=== PATIENT | female | born 1985 | race Asian ===

== ENCOUNTER → 2018-07-16 12:53 | Outpatient (CLI) | payer OTHER, SELFPAY ==
--- NOTE | 2018-07-16 12:55 | DI.US.S_ITS ---
PROCEDURE: US PELVIC COMPLETE INDICATIONS: 2 WEEKS POST SAB; POSSIBLE RPOC TECHNIQUE: Real-time scanning was performed of the pelvic organs, with image documentation. Additional endovaginal scanning was necessary due to incomplete visualization of the adnexal and endometrial structures by transabdominal scanning. COMPARISON: None. FINDINGS: Transabdominal scanning: Limited scanning through the kidneys shows no hydronephrosis. No pathologic free abdominal or pelvic fluid. Endovaginal scanning: Uterus: Uterus is retroverted measuring 6.7 x 3.9 x 4.4 cm. The endometrium measures 7.2 mm in combined thickness. There is hypoechoic material within the endometrium demonstrating no vascularity, most likely clot. Ovaries: There is a complex cyst involving the right ovary measures 2.8 x 2.2 x 2.9 cm. The right ovary measures 3.0 x 2.9 x 2.2 cm. Left ovary measures 1.9 x 0.9 x 2.5 cm. IMPRESSION: 1. A 2.8 x 2.2 x 2.9 cm complex cyst in the right ovary, most likely a hemorrhagic cyst. Recommend followup ultrasound in 6-12 weeks. 2. Hypoechoic material in the endometrial cavity, probably related to blood clot. Retained products conception is felt less likely but not entirely excluded. Recommend clinical correlation and followup imaging if clinically indicated. Dictated by: Clinton Cowan M.D. on 07/16/2018 at 16:14 Approved by: Clinton Cowan M.D. on 07/16/2018 at 16:20
== END ==
PROVIDERS: PCP Family Medicine; Visit Provider Family Medicine
DX: O03.4 Incomplete spontaneous abortion without complication (principal)
CPT/HCPCS: 76830; 76856

== ENCOUNTER → 2018-07-20 09:50 | Outpatient (CLI) | payer BC, SELFPAY ==
[2018-07-20 11:14] LABS: HCG Quantitative /Beta subunit 17.88 mIU/mL
== END ==
PROVIDERS: Family Provider Family Medicine; PCP Family Medicine; Visit Provider Family Medicine
DX: O03.9 Complete or unspecified spontaneous abortion without complication (principal)
CPT/HCPCS: 36415; 84702

== ENCOUNTER → 2018-07-30 16:01 | Outpatient (CLI) | payer BC, SELFPAY ==
[2018-07-30 18:35] LABS: HCG Quantitative /Beta subunit 3.79 mIU/mL
== END ==
PROVIDERS: PCP Family Medicine; Visit Provider Family Medicine
DX: O03.9 Complete or unspecified spontaneous abortion without complication (principal)
CPT/HCPCS: 36415; 84702

== ENCOUNTER → 2018-10-16 10:16 | Outpatient (CLI) | payer BC, SELFPAY ==
--- NOTE | 2018-10-16 10:17 | DI.US.S_ITS ---
PROCEDURE: US PELVIC COMPLETE INDICATIONS: FOLLOW UP RIGHT OVARIAN CYST TECHNIQUE: Real-time scanning was performed of the pelvic organs, with image documentation. Additional endovaginal scanning was necessary due to incomplete visualization of the adnexal and endometrial structures by transabdominal scanning. COMPARISON: [facility], , US PELVIC COMPLETE, 07/16/2018, 12:58. FINDINGS: Transabdominal scanning: Limited scanning through the kidneys shows no left-sided hydronephrosis. Prominent right renal pelvis is seen. No pathologic free abdominal or pelvic fluid. Physiologic amount of pelvic free fluid is seen. Endovaginal scanning: Uterus: Uterus is normal in size at 7.4 x 4.0 x 3.4 cm. The endometrium measures 9 mm in combined thickness. No gross endometrial mass or fluid is seen. No discrete uterine fibroid. Ovaries: Right ovary measures 2.9 x 1.6 x 1.5 cm in size. Left ovary measures 2.6 x 1.1 x 1.5 cm in size. Subcentimeter follicles are seen in bilateral ovaries. No gross solid renal lesion. IMPRESSION: Essentially unremarkable ultrasound examination of pelvis. Incidentally noted are mildly prominent right renal pelvis which could represent mild hydronephrosis versus peripelvic cyst. Dictated by: Camacho Jackson M.D. on 10/16/2018 at 13:04 Approved by: Camacho Jackson M.D. on 10/16/2018 at 13:07
== END ==
PROVIDERS: PCP Family Medicine; Visit Provider Family Medicine
DX: N83.201 Unspecified ovarian cyst, right side (principal)
CPT/HCPCS: 76830; 76856

== ENCOUNTER → 2020-05-30 10:35 | Outpatient (CLI) | payer OTHER, SELFPAY ==
--- NOTE | 2020-05-30 10:39 | DI.US.S_ITS ---
PROCEDURE: US OB <= 14 WEEKS FETUS INDICATIONS: SIZE AND DATES. OUTSIDE/PRIOR DATING DATA: Last menstrual period (LMP): 03/22/20. LMP-based estimated date of delivery (SHAMEKA): 12/27/20 . First dating scan (date and location): This study, 05/30/20 . Estimated date of delivery (SHAMEKA) from first dating scan: 01/01/21 . TECHNIQUE: Real-time scanning was performed of the fetus and maternal pelvic organs, with image documentation. Endovaginal scanning was also performed to better visualize the fetus and maternal ovaries. COMPARISON: None. FINDINGS: Embryo: [place]-rump length 2.4 cm, which correlates with a gestational age of 9 weeks 1 day, +/-5 days. heart rate is 171 beats per minute. Measurement variability in dating: +/- 4 weeks by LMP, +/- 7 days by mean sac diameter (use before 6 weeks gestation if crown-rump length not able to be measured), +/- 5 days by crown-rump length (up to 8 weeks 6 days gestation), +/- 7 days by crown-rump length (up to 13 weeks 6 days gestation). Maternal organs: Ovaries normal considering gestational status . Limited images through the kidneys demonstrate no hydronephrosis. IMPRESSION: Single living intrauterine gestation, 9 weeks 1 day gestational age. The delivery date is projected to be centered on 01/01/21, +/-5 days. Recommend anatomic survey at 20 weeks gestation. Dictated by: Kp Barton M.D. on 05/30/2020 at 14:37 Approved by: Kp Barton M.D. on 05/30/2020 at 14:39
== END ==
PROVIDERS: PCP Family Medicine; Referring Provider Family Medicine; Visit Provider Family Medicine
DX: Z34.81 Encounter for supervision of other normal pregnancy, first trimester (principal); Z3A.09 9 weeks gestation of pregnancy
CPT/HCPCS: 76801

== ENCOUNTER → 2020-07-04 11:57 | Outpatient (CLI) | payer OTHER, SELFPAY ==
[2020-07-04 12:30] LABS: Add Manual Diff / Slide Review NO; Basophils Absolute Auto 0 /uL (0-100); Basophils Percent Auto 0.3 % (0-2); Eosinophils Absolute Auto 300 /uL (0-450); Hematocrit 38.9 % (36-46); Lymphocytes Absolute Auto 1900 /uL (1100-4500); Lymphocytes Percent Auto 14.6 % (25-40); Mean Corpuscular HGB Conc 33.5 % (30-36); Mean Corpuscular Hemoglobin 29.1 PG (26-34); Mean Corpuscular Volume 86.9 fL (80-100); Monocytes Absolute Auto 600 /uL (0-900); Monocytes Percent Auto 4.9 % (3-14); Neutrophils Absolute Auto 10200 /uL (1500-7000); Neutrophils Percent Auto 78.2 % (50-75); Platelet Count 212 X10^3/uL (150-400); Red Blood Cell Count 4.47 X10^6/uL (4.0-5.2); Red Cell Distribution Width 12.8 % (11.6-14.8)
[2020-07-04 12:51] LABS: Appearance Urine UA CLOUDY; Bilirubin Urine UA NEGATIVE (NEGATIVE); Color Urine UA YELLOW; Glucose Urine UA NEGATIVE (Negative); Ketones Urine UA NEGATIVE (NEGATIVE); Leukocyte Esterase Urine UA NEGATIVE (NEGATIVE); Nitrite Urine UA NEGATIVE (Negative); Occult Blood Urine UA TRACE-LYSED (Negative); Protein Urine UA NEGATIVE (Negative); Urobilinogen Urine UA 0.2 E.U./dL (0.2)
[2020-07-04 13:21] LABS: Hepatitis B Surface Antigen NEGATIVE s/c (NEGATIVE); Rubella Antibody IgG 35.5 IU/mL (>15)
[2020-07-04 13:37] LABS: HIV 1 & 2 Ab/Ag 4th Gen Combo NEGATIVE (NEGATIVE); Hep C Virus Ab w/Reflex Quant NEGATIVE s/c (NEGATIVE)
[2020-07-05 06:55] LABS: RPR Screen Non Reactive (Non Reactive)
[2020-07-05 07:40] LABS: Varicella IgG Antibody 346 index (Immune >165)
== END ==
PROVIDERS: PCP Family Medicine; Referring Provider Family Medicine; Visit Provider Family Medicine
DX: O09.529 Supervision of elderly multigravida, unspecified trimester (principal); Z3A.14 14 weeks gestation of pregnancy
CPT/HCPCS: 36415; 80055; 81003; 81420; 86787; 86803; 86850; 86900; 86901; 87086; 87389

== ENCOUNTER → 2020-08-16 10:16 | Outpatient (CLI) | payer OTHER, SELFPAY ==
--- NOTE | 2020-08-16 10:17 | DI.US.S_ITS ---
PROCEDURE: US OB >= 14 WEEKS FETUS INDICATIONS: ANATOMY OUTSIDE/PRIOR DATING DATA: Last menstrual period (LMP): 03/22/2020. LMP-based estimated date of delivery (SHAMEKA): 12/27/2020 . First dating scan (date and location): 05/30/2020 Estimated date of delivery (SHAMEKA) from first dating scan: 01/01/2021 . TECHNIQUE: Real-time scanning was performed of the fetus, with image documentation and biometric measurements. Endovaginal scanning: No COMPARISON: [facility], OB <= 14 WEEKS FETUS, 05/30/2020, 10:58. FINDINGS: General: A single living intrauterine gestation is present. Presentation: Variable. Placenta: Placental position is posterior , without previa. Amniotic fluid index: 13.5 cm, normal range is 5-24 cm. heart rate: 150 beats per minute. Maternal cervical canal: 3.2 cm long. Normal lower limit is 2.5 cm. biometrics: Biparietal diameter: 20 weeks 3 days Head circumference: 20 weeks Abdominal circumference: 20 weeks Femur length: 20 weeks 2 days Estimated gestational age from initial scan: 20 weeks 2 days Composite gestational age from present scan: 20 weeks 3 days Estimated weight and percentile: 363 g; 60 second percentile Measurement variability for biometric dating: +/- 7 days from 14 weeks to 15 weeks 6 days gestation, +/- 10 days from 16 weeks to 21 weeks 6 days gestation, +/- 2 weeks from 22 weeks to 27 weeks 6 days gestation, +/- 3 weeks for 28 weeks gestation or later. weight reference: 4500 g or EFW >90/95% is considered macrosomia or large for gestational age. EFW <10% is small for gestational age. EFW 5% or less is considered intra-uterine growth restriction. Anatomic survey: Neuro: Ventricles are non-dilated at less than 10 mm. Cisterna magna is normal at 3-11 mm. Cerebellum is normal in size and morphology. Nuchal skin fold: Normal at less than 6 mm between 14-21 weeks gestational age. Face: Nose and lips, facial profile are normal. Spine: No evidence for spina bifida. Heart: 4-chambered heart is present, with normal ventricular outflow tracts. Diaphragm: Diaphragm is intact. Stomach: Left-sided stomach is present. Kidneys: No hydronephrosis. Normal is less than 5 mm in 2nd trimester, less than 7 mm in 3rd trimester. Cord: 3-vessel cord has orthotopic insertion. Marginal placental cord insertion roughly 1.9 cm from the superior edge of the placenta. Bladder: Normal in size. Extremities: All 4 extremities identified. IMPRESSION: 1. Single living IUP redemonstrated and interval growth is normal. 2. Marginal placental cord insertion site; otherwise normal anatomy. Dictated by: Franko SONG Interpreted: Roman Ga MD on 08/16/2020 at 12:02 Approved by: Roman Ga M.D. on 08/16/2020 at 14:31
== END ==
PROVIDERS: PCP Family Medicine; Referring Provider Family Medicine; Visit Provider Family Medicine
DX: Z36.89 Encounter for other specified antenatal screening (principal); Z3A.20 20 weeks gestation of pregnancy
CPT/HCPCS: 76811

== ENCOUNTER → 2020-10-30 12:39 | Outpatient (CLI) | payer OTHER, SELFPAY ==
--- NOTE | 2020-10-30 12:41 | DI.US.S_ITS ---
PROCEDURE: US OB LIMITED INDICATIONS: LARGE FOR GESTATIONAL AGE OUTSIDE/PRIOR DATING DATA: Last menstrual period (LMP): 03/22/2020. LMP-based estimated date of delivery (SHAMEKA): 12/27/2020 . First dating scan (date and location): 05/30/2020, [facility]. Estimated date of delivery (SHAMEKA) from first dating scan: 01/01/2021. TECHNIQUE: Real-time scanning was performed of the fetus, with image documentation and biometric measurements. COMPARISON: None. FINDINGS: General: A single living intrauterine gestation is present. Presentation: Transverse with head to maternal left. Placenta: Placental position is posterior , without previa. Amniotic fluid index: 19.6 cm, normal range is 5-24 cm. heart rate: 158 beats per minute. Maternal cervical canal: 5.4 cm long. Normal lower limit is 2.5 cm. biometrics: Biparietal diameter: 8.0 cm, 32 weeks 1 day Head circumference: 28.9 cm, 31 weeks 5 days Abdominal circumference: 26.5 cm, 30 weeks 4 days Femur length: 5.9 cm, 30 weeks 5 days Estimated gestational age from initial scan: not applicable. Composite gestational age from present scan: 31 weeks 2 days Estimated weight and percentile: 1664 g, 35th percentile Measurement variability for biometric dating: +/- 7 days from 14 weeks to 15 weeks 6 days gestation, +/- 10 days from 16 weeks to 21 weeks 6 days gestation, +/- 2 weeks from 22 weeks to 27 weeks 6 days gestation, +/- 3 weeks for 28 weeks gestation or later. weight reference: 4500 g or EFW >90/95% is considered macrosomia or large for gestational age. EFW <10% is small for gestational age. EFW 5% or less is considered intra-uterine growth restriction. Other: Not applicable. IMPRESSION: 1. Living 3rd trimester intrauterine with no evidence of complications. 2. Ultrasound age is 2 days greater than clinical age based on initial ultrasound. Dictated by: South Velasco M.D. on 10/30/2020 at 14:45 Approved by: South Velasco M.D. on 10/30/2020 at 14:50
== END ==
PROVIDERS: PCP Family Medicine; Referring Provider Family Medicine; Visit Provider Family Medicine
DX: Z36.88 Encounter for antenatal screening for fetal macrosomia (principal); Z3A.31 31 weeks gestation of pregnancy
CPT/HCPCS: 76815

== ENCOUNTER → 2020-12-05 11:20 | Outpatient (CLI) | payer OTHER, SELFPAY ==
[2020-12-06 16:15] LABS: Strep Grp B PCR NEG for Grp B Strep
== END ==
PROVIDERS: PCP Family Medicine; Referring Provider Family Medicine; Visit Provider Family Medicine
DX: Z3A.36 36 weeks gestation of pregnancy (principal)
CPT/HCPCS: 87653

== ENCOUNTER 2020-12-29 07:37 | Inpatient (IN) | payer OTHER, SELFPAY ==
--- NOTE | 2020-12-29 07:51 | P.HPOB_ITS ---
OB HPI Date/Time Date of admission: 12/29/20 Date Patient Seen: 12/29/20 Time Patient Seen: 08:00 History of Present Condition Chief complaint: EVAL OF LABOR : 3 Para: 1 Estimated Date of Delivery: 12/29/20 Estimated Gestational Age (weeks): 40 w Narrative: Devan Muñoz is a 35 year old at 40 weeks gestation here for induction due to advanced maternal age and maternal discomfort. has been uncomplicated. Indications Indication for induction OB: maternal discomfort History of Present care: good care, initiated at week # (10), number of visits (12) and pounds weight gain (37) Dating criteria: LMP confirmed by 1st trimester US Ultrasounds: normal 1st trimester US and normal mid trimester US Obstetrical complications: none Medical complications: none Preadmission Labs Blood type: B (+) positive -: Antibody screen: negative, GBS status: negative, HBsAG: negative, HIV: negative and RPR/VDLR: negative -: Chlamydia screen: not detected and Gonorrhea screen: not detected -: Rubella: immune and Varicella: immune HCT: 39.2 HCAB: negative PAP: Normal Cell-free DNA: Normal male 1 hr GTT: 125 3 hr GTT: 1 hr Prior (ies) History: 05/06/17 40.2 wks, 15 hr labor, epidural, 6 lb 11 oz female, [place], [place], [place], breast fed 2+ years 07/02/18 SAB 7-8 wks, [place], [place] Evaluation Evaluation Baseline heart rate: 130 Variability: Moderate (11-25) monitor accelerations: Present Monitor Decelerations: Absent Category of Tracing: Reactive Cervical dilation (cm): 3 Cervical effacement (%): 75 station: -2 [facility] Medical History AMA (advanced maternal age) multigravida 35+ Hemorrhage, immediate (~05/06/17) Hemorrhoids (~04/2017) Miscarriage (~07/02/18) Ovarian cyst PCOS (polycystic ovarian syndrome) Spontaneous vaginal delivery (~05/06/17) Surgical History H/O breast augmentation (~2014) Family History Mother Hyperlipidemia Father No problems noted. Grandmother No problems noted. Grandfather No problems noted. 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) current occupational exposures/hazards: Yes francisco/congregation: [employer] special francisco needs: No Smoking Status: Never smoker second hand exposure: No alcohol intake: former (pre- : rare) substance use type: does not use Meds Home Medications and Allergies Home Medications Medication Instructions Recorded Confirmed Type prenat.vits,latrice,[id number] 1 tab PO DAILY 05/30/20 12/29/20 History Allergies Allergy/AdvReac Type Severity Reaction Status Date / Time No Known Drug Allergies Allergy Verified 06/06/20 12:03 Review of Systems Review of Systems ROS: Yes All systems reviewed with the patient and are negative except as otherwise documented Exam Vital Signs (past 8 hours): Temperature 36.5? blood pressure 107/69 heart rate 105 Const General: healthy appearing and comfortable HENMT Head: normal to inspection Ears: hearing grossly normal bilaterally Nose: external nose normal Face and sinus: normal facial exam Mouth: oral mucosae normal Eyes General: appearance normal, both eyes and all related structures Neck Neck: normal visual inspection Resp Effort & Inspection: normal respiratory effort Auscultation: clear to auscultation bilaterally Cardio Rate: regular rate Rhythm: regular rhythm Heart Sounds: no murmurs GI Other: Gravid External Female Exam: normal external appearance Manual OB Exam: dilated 3, effaced 75% and station -2 Presentation: vertex Estimated Weight (lbs): 7 Back/Spine/Pelvis Back: normal to inspection Skin General: no rashes or lesions noted Extrem General: normal to inspection and no pedal edema Objective Labs Result Diagrams: 12/29/20 07:55 Assessment and Plan Assessment and Plan Assessment and Plan narrative: 35-year-old at 40 weeks gestation here for induction for AMA and maternal discomfort. Victoria score is 9. Plan Pitocin per protocol Epidural when desired Anticipate
[2020-12-29] MEDS: LACTATED RINGERS 1,000 ML 100 ML IV ×4 (08:10→17:04)
[2020-12-29] MEDS: OXYTOCIN PREMIX 30 UNIT/500 ML PLAST..BAG IV (08:11)
[2020-12-29 08:15] LABS: Add Manual Diff / Slide Review NO; Basophils Absolute Auto 0 /uL (0-100); Basophils Percent Auto 0.4 % (0-2); Eosinophils Absolute Auto 300 /uL (0-450); Eosinophils Percent Auto 2.8 % (2-4); Hematocrit 39.2 % (36-46); Hemoglobin 13.3 g/dL (12.0-16.0); Lymphocytes Absolute Auto 1900 /uL (1100-4500); Lymphocytes Percent Auto 15.6 % (25-40); Mean Corpuscular HGB Conc 33.9 % (30-36); Mean Corpuscular Hemoglobin 30.9 PG (26-34); Mean Corpuscular Volume 91.3 fL (80-100); Monocytes Absolute Auto 800 /uL (0-900); Monocytes Percent Auto 6.4 % (3-14); Neutrophils Absolute Auto 9200 /uL (1500-7000); Neutrophils Percent Auto 74.8 % (50-75); Platelet Count 130 X10^3/uL (150-400); Red Blood Cell Count 4.29 X10^6/uL (4.0-5.2); Red Cell Distribution Width 13.7 % (11.6-14.8); White Blood Cell Count 12.3 X10^3/uL (4.5-11.0)
[2020-12-29 08:29] VITALS: BP 107/69
[2020-12-29 09:15] LABS: COVID19 - ADMIT (NP swab/PCR) Negative (Negative)
--- NOTE | 2020-12-29 12:38 | PM.OBPNLAB ---
Date/Time Date Patient Seen: 12/29/20 Time Patient Seen: 12:30 Pain Control Pain control: tolerating well Pelvic Exam Dilation (cm): 4 Effacement (%): 75 station: -2 Amniotic membrane status: Ruptured (AROM clear fluid) Contractions Monitor mode: External Pitocin rate (mU/min): 12 Contraction frequency (min): 3 Status status: Category l Heart Rate Baseline: 130 Monitor Accelerations: Present Monitor Decelerations: Absent Monitor Variability: Moderate Assessment and Plan Assessment: induction ongoing Plan: continuous present management Comments: AROM with clear fluid. Continue pitocin. Epidural upon request.
[2020-12-29] MEDS: FENT 2MCG/ML BUPIV 0.125% EPI 200 MCG/100 ML PLAST..BAG 8 MCG EPIDURAL (13:05)
--- NOTE | 2020-12-29 14:27 | PM.AN.REGBLK ---
Regional Block Pre-procedure Procedure: Continuous Lumbar Epidural for L&D Attending OB provider: Idalmis Wong PMH/ROS narrative: No significant past medical history. Hx: No personal or family history of anesthesia problems. Exam narrative: MP2, RRR, CTAB ASA Class: II Labs: Hct 39.2 % (36-46) 12/29/20 07:55 Plt Count 130 X10^3/uL (150-400) L 12/29/20 07:55 Medications: Current Medications Generic Name Dose Route Start Last Admin Trade Name Freq PRN Reason Stop Dose Admin Calcium Carbonate 1,000 mg 12/29/20 08:03 Calcium Carbonate 500 Mg Tab PO Q2HR PRN Dyspepsia Carboprost Tromethamine 250 mcg 12/29/20 08:03 Carboprost 250 Mcg/Ml Ampul IM Q90M PRN Bleeding Fentanyl 50 mcg 12/29/20 08:03 Fentanyl 100 Mcg/2 Ml Inj IV Q1H PRN Pain, Moderate (4-6) Oxytocin/Lactated Ringer's 30 unit in 500 mls @ 3 mls/hr 12/29/20 08:15 Oxytocin Premix IV TITRATE MINA Protocol 3 MILLIUNIT/MIN Lactated Ringer's 1,000 mls @ 100 mls/hr 12/29/20 08:15 12/29/20 13:17 Lactated Ringers IV 100 mls/hr CONT MINA Administration Oxytocin/Lactated Ringer's 30 unit in 500 mls @ 200 mls/hr 12/29/20 08:03 Oxytocin Premix IV CONT PRN Bleeding Protocol Tranexamic Acid 1,000 mg/ 100 mls @ 200 mls/hr 12/29/20 08:03 Sodium Chloride IV NOW PRN Bleeding Methylergonovine Maleate 0.2 mg 12/29/20 08:03 Methylergonovine 0.2 Mg/Ml Vial IM NOW PRN Bleeding Methylergonovine Maleate 0.2 mg 12/29/20 08:03 Methylergonovine 0.2 Mg Tablet PO Q6HR PRN Heavy Bleeding Misoprostol 1,000 mcg 12/29/20 08:03 Misoprostol 200 Mcg Tablet PA NOW PRN Bleeding Misoprostol 400 mcg 12/29/20 08:03 Misoprostol 200 Mcg Tablet SL NOW PRN Bleeding Misoprostol 800 mcg 12/29/20 08:03 Misoprostol 200 Mcg Tablet PA NOW PRN Bleeding Ondansetron HCl 4 mg 12/29/20 08:03 Ondansetron 4 Mg/2 Ml Inj IV Q4HR PRN Nausea And Vomiting Oxytocin 10 unit 12/29/20 08:03 Oxytocin 10 Unit/Ml Vial IM NOW PRN Bleeding Allergies: Allergies Allergy/AdvReac Type Severity Reaction Status Date / Time No Known Drug Allergies Allergy Verified 06/06/20 12:03 Procedure Insertion date: 12/29/20 Insertion time: 12:24 Prep/Local: betadine x3 (chloroprep) and 1% lidocaine Interspace: L2-3 Patient position: sitting Needle: 18 gauge Leonidastead Loss of resistance with: saline WONG at (cm): 4 Catheter placed at SKIN (cm): 9 Catheter in SPACE (cm): 5 Insertion: Yes CSF, No Blood, No Paresthesia with insertion, No Paresthesia with injection and No Test dose reaction Initial Medications TEST DOSE: 1.5% lidocaine with epinephrine 1:200k (mL): 5 BOLUS DOSE (mL): 2 BOLUS DOSE med: other (10mcg fentanyl intrathecally, 90mcg fentanyl via epidural catheter) Infusion INFUSION: 0.0625% bupivacaine and with fentanyl 2 mcg/mL Initial rate (mL/hr): 8 Subsequent interventions: 1540 - patient says she is a little too numb, turned rate down from 8 mL/hr to 7 mL/hr 1650 - pushing, comfortable, would like to feel a little more - turned down to 6 mL/hr Post-procedure Anesthesia time START: 12:01 Anesthesia time END: 20:15 Post-procedure Anesthesia Assessment: Yes CV function: HR/BP stable, Yes Resp function: RR/sat/airway adequate, Yes Post-op hydration adequate, Yes Pain control adequate, Yes Nausea & vomiting absent, Yes Temperature > 36 C, Yes Mental status appropriate and No Anesthesia complications
--- NOTE | 2020-12-29 17:24 | PM.OBPNLAB ---
Date/Time Date Patient Seen: 12/29/20 Time Patient Seen: 17:25 Pain Control Pain control: tolerating well and epidural Comments: Comfortable with epidural Pelvic Exam Dilation (cm): 10 Effacement (%): 100 station: 0 Amniotic membrane status: Ruptured (AROM clear fluid) Contractions Monitor mode: External Contraction frequency (min): 2 Status status: Category ll Heart Rate Baseline: 130 Monitor Accelerations: Present Monitor Decelerations: Late and Variable Monitor Variability: Moderate Assessment and Plan Assessment: active labor Plan: continuous present management Comments: 35 year old at 40 weeks for induction for AMA and maternal discomfort. Patient was complete at 16:09 but not feeling pressure. Shortly thereafter she was feeling pressure so pushing iniated at 16:31. EFM cat II due to variable and late decelerations with pushing but good variability and recovery in between pushes. Patient was given a fluid bolus and oxygen with improvement in EFM. She pushed for about 45 min then stated she no longer had the urge to push. Will have her labor down and wait for the urge to return. Suspect is either OP or OT so will use the peanut ball to help descent and turning.
[2020-12-29] MEDS: miSOPROStoL 200 MCG TABLET 1000 MCG PR (20:23)
--- NOTE | 2020-12-29 20:47 | P.PCNOB_ITS ---
Labor & Delivery Delivery date: 12/29/20 Induction method: per pitocin protocol Delivery augmentation: rupture of membranes Delivery monitor: external FHT Route of delivery: vacuum extraction Indication for instrumentation: maternal exhaustion L&D Laceration Description: Vaginal - 1st Degree Estimated blood loss (mL): 450 Anesthesia Type: Epidural Narrative: Patient is a 35-year-old at 40 weeks who gave on 12/29/20 at 8:15 p.m.. SHAMEKA: 12/29/20 Hospital problems: 40 weeks of Vacuum assisted vaginal delivery STAGE I: Labor Patient received Pitocin per protocol. Artificial rupture membranes occurred at 12:45 p.m. with clear fluid. Actively labor began shortly thereafter and she went on to receive an epidural with excellent pain control. She progressed to complete at 2:09 p.m.. heart tones were category 1 and 2 throughout stage I due to occasional variable and late decelerations. Variability remained excellent throughout. STAGE II: Delivery Patient was complete at 4:09 p.m. however did not have the urge to push. She labor down for about 20 minutes then stated she felt rectal pressure. Pushing initiated at 1631. After approximately 45 minutes with little descent, patient stated she no longer had the urge to push. She labored down for about an hour when rectal pressure returned. She pushed for over an hour with slow descent. The decision was made to consult Dr. Whatley with obstetrics for possible vacuum assisted delivery due to maternal exhaustion. Dr. Whatley arrived and determined that a vacuum was appropriate. Patient's bladder had been emptied approximately 1 hour prior. He applied the Omni cup vacuum and pulled over 1 contraction to . The vacuum was then removed. Patient rested until the next contraction then was able to push and deliver the infant over an intact perineum. Infant was vertex and ADRIANNA. He was immediately placed on mother's a bdomen. Cord was clamped and cut after 1 minutes delay. Apgars were 9 and 9. No resuscitation of the required. STAGE III: Placenta/Cord Placenta delivered at 8:20 p.m. after active management and appeared intact with a three-vessel cord. Pitocin bolus started immediately after delivery of placenta. A 1 cm first-degree vaginal laceration was repaired with 4-0 chromic due to bleeding. Hemostasis achieved. Complications: There were small gushes of blood with persistent tricking after delivery of placenta so Cytotec 1000 mcg given per rectum in addition to pitocin bolus. Uterus was firm at umbilicus after interventions. Patient has a history of hemorrhage. EBL: 450 mL. Needle and sponge counts were correct. The vagina was inspected and no items were left in situ. Patient was doing well with Cody, her and at bedside. Baby 1: Infant gender: Male Presentation: vertex Position: Right Occiput Anterior Placenta delivery description: Spontaneous Cord Vessel Description: 3 Vessels score (1 min): 9 score (5 min): 9 Plan for aftercare: Routine care
[2020-12-30] MEDS: DERMOPLAST SPRAY 20% 60 ML 1 SPRAY TOP (02:42)
[2020-12-30] MEDS: IBUPROFEN 600 MG TABLET PO ×2 (02:43→14:53)
[2020-12-30] MEDS: ACETAMINOPHEN 325 MG TABLET 650 MG PO ×2 (02:43→14:53)
--- NOTE | 2020-12-30 06:09 | PM.CN ---
History of Present Illness Consult details Date Patient Seen: 12/29/20 Time Patient Seen: 20:00 Chief complaint: EVAL OF LABOR Reason for consult: Secondary arrest of labor due to maternal exhaustion Requesting provider: Idalmis Wong Narrative: Mrs. Muñoz is a 35 yo in induced labor at term who has progressed into the second stage which has been ongoing for approximately 4 hours. She is laboring with an epidural in place and is pushed the down to a +2 station. Estimated weight is no greater than 7-1/2 lb and pelvis is clinically adequate. heart rate tracing shows moderate variability, normal baseline and early decelerations/variables with maternal pushing and is a category 2 tracing. The infant is found to be +2 station, KORINA, and the vertex moves downward with maternal pushing effort. After discussing the circumstances with the patient and her as well as Dr. Wong, the decision was made to proceed with vacuum assisted delivery due to maternal exhaustion. A Kiwi OmniCup was applied in the usual fashion, suction to approximately 600 mm of mercury applied and with a single pole, the vertex was brought down to the perineum and the vacuum extractor released with the infant . At that point, completion of the vaginal delivery was turned over to Dr. Wong whose delivery note details the remainder of the procedure and delivery. Meds Home Medications and Allergies Home Medications Medication Instructions Recorded Confirmed Type prenat.vits,latrice,[id number] 1 tab PO DAILY 05/30/20 12/29/20 History Allergies Allergy/AdvReac Type Severity Reaction Status Date / Time No Known Drug Allergies Allergy Verified 06/06/20 12:03 Objective Labs Result Diagrams: 12/29/20 07:55 Labs: Laboratory Results - last 24 hr 12/29/20 12/29/20 12/29/20 07:55 07:55 07:55 WBC 12.3 H RBC 4.29 Hgb 13.3 Hct 39.2 MCV 91.3 MCH 30.9 MCHC 33.9 RDW 13.7 Plt Count 130 L Neut % (Auto) 74.8 Lymph % (Auto) 15.6 L [place] % (Auto) 6.4 Eos % (Auto) 2.8 Baso % (Auto) 0.4 Neut # (Auto) 9200 H Lymph # (Auto) 1900 [place] # (Auto) 800 Eos # (Auto) 300 Baso # (Auto) 0 SARS-CoV-2 (PCR) Negative Blood Type B Positive Antibody Screen Negative
[2020-12-30 06:38] LABS: Hematocrit 33.2 % (36-46); Hemoglobin 11.3 g/dL (12.0-16.0)
--- NOTE | 2020-12-30 09:38 | P.DS_ITS ---
Discharge Providers Provider Date of admission: 12/29/20 07:37 Discharge Date: 12/30/20 Primary care physician: Idalmis Wong DO Consults: 12/30/20 20:48 Consult to [employer] Routine Comment: Discharge provider: Idalmis Wong DO Summary Hospital Course Date Patient Seen: 12/30/20 Time Patient Seen: 08:45 Diagnoses: Vacuum assisted vaginal delivery 40 weeks of Hospital Course: Patient is a 35-year-old G3 now P2 after vacuum assisted vaginal delivery for maternal exhaustion. Delivery occurred at 40 weeks gestation on 12/29/20. Patient was brought in for induction for maternal discomfort and advanced maternal age. She received Pitocin per protocol then went on to receive an epidural. She was complete and pushing for several hours with slow descent so Dr. Whatley was consulted for vacuum assisted vaginal delivery. Dr. Whatley successfully applied the vacuum and patient went on to deliver a vigorous male . Immediately there was more bleeding than expected so she was given Pitocin and Cytotec with excellent control of bleeding. EBL 450 mL. course was uncomplicated. She was ambulating, voiding, eating and passing flatus. Vaginal bleeding was moderate and pain controlled with ibuprofen. Breast-feeding was going well without concerns in in the . Advised patient to call for fevers, severe pain or bleeding through more than a pad an hour. She will follow-up in clinic in 6 weeks. Peripartum Data Delivery Method: Assisted Delivery (Vacuum assisted for maternal exhaustion) Laceration Description: Vaginal - 2nd Degree complications: none 1: Gender: Male Disposition of : home Discharge Diagnosis (1) Vacuum-assisted vaginal delivery: Status: Acute (2) 40 weeks gestation of : Status: Acute Status at Discharge Cognitive/behavioral status at discharge: at baseline, oriented Functional status at discharge: independent ambulation Overall status at discharge: patient is progressing back to baseline Time Spent with Patient Time attestation: Total time spent providing and/or coordinating discharge services: Time spent: Less than 30 minutes Objective Labs Result Diagrams: 12/30/20 06:28 Labs: Laboratory Results - last 24 hr 12/30/20 06:28 Hgb 11.3 L Hct 33.2 L Exam Vital Signs (past 8 hours): Temperature 36.7? blood pressure 108/49 heart rate 86 Narrative Exam Narrative: General: Awake and alert, no acute distress. HEENT: NCAT, EOMI, moist oral mucosa CV: Regular rate and rhythm, no murmurs, rubs or gallops Lungs: CTAB, no wheezes, rales, or rhonchi Abdomen: Soft, nontender; bowel tones active; uterus firm 1 cm below umbilicus Extremities: Warm, no edema Discharge Plan Discharge Plan Patient Disposition: Home Discharge orders & Medications Prescriptions: New docusate sodium [DOK] 100 mg Capsule 100 mg PO DAILY Qty: 30 RF: 0 ibuprofen 600 mg Tablet 600 mg PO Q6HR PRN (Reason: Pain, Mild (1-3)) Qty: 30 RF: 0 Continued prenat.vits,latrice,[id number] Tablet 1 tab PO DAILY RF: 0 Follow up/Referrals: Idalmis Wong DO [Primary Care Provider] - 6 Weeks (Patient will be scheduled for her 6 week visit when she comes in with her for his first visit.) Visit Report/Discharge Packet Visit Report Forms: Patient Portal/API, Stroke Signs & Symptoms Discharge Data Primary Care Provider: Idalmis Wong
[2020-12-30] MEDS: PRENATAL VIT,CALC/IRON/FOLIC 1 TABLET 1 TAB PO (10:00)
[2020-12-30] MEDS: DOCUSATE 100 MG CAPSULE PO (10:00)
[2020-12-30 10:43] VITALS: BP 108/49; PULSE 86; RESP 18; TEMP 36.7
== END 2020-12-30 15:30 | disposition home or self-care (01) | DRG 807 ==
PROVIDERS: Admitting Provider Family Medicine; PCP Family Medicine; Referring Provider Family Medicine; Visit Provider Family Medicine
DX: O48.0 Post-term pregnancy (principal); Z37.0 Single live birth; Z3A.40 40 weeks gestation of pregnancy; Z20.822 Contact with and (suspected) exposure to COVID-19; O70.0 First degree perineal laceration during delivery
CPT/HCPCS: 01967; 36415; 59050; 59400; 85014; 85018; 85025; 86850; 86900; 86901; 87635; C9803; G0379; J2590; S0191

== ENCOUNTER → 2021-08-14 09:52 | Outpatient (CLI) | payer OTHER, MEDICAID, SELFPAY ==
[2021-08-14 10:24] LABS: COVID19 -Nasal RAPID Negative (Negative)
== END ==
PROVIDERS: PCP Family Medicine; Referring Provider Family Medicine; Visit Provider Family Medicine
DX: R05.9 Cough, unspecified (principal); Z20.822 Contact with and (suspected) exposure to COVID-19
CPT/HCPCS: 81025; 87635

== ENCOUNTER → 2024-10-18 14:14 | Outpatient (CLI) | payer OTHER, SELFPAY ==
--- NOTE | 2024-10-18 14:16 | DI.US.S_ITS ---
PROCEDURE: US THYROID INDICATIONS: Enlarged thyroid TECHNIQUE: Real-time scanning was performed of the thyroid gland, with image documentation. COMPARISON: None. FINDINGS: Thyroid: Right lobe measures 4.7 x 1.7 x 1.4 cm. Left lobe measures 4.4 x 1.6 x 1.6 cm. Isthmus is 0.3 cm thick. Echotexture is diffusely heterogeneous and mildly hyperemic. IMPRESSION: Diffusely heterogeneous and mildly hyperemic thyroid which can be associated with thyroiditis in the appropriate clinical setting. No discrete nodules. ACR TI-RADS definitions and recommendations: TI-RADS 1 (benign): 0 points. FNA not needed. TI-RADS 2 (not suspicious): 2 points. FNA not needed. TI-RADS 3: 3 points. * FNA if 2.5 cm or larger, follow up if 1.5 cm or larger (at 1, 3, and 5 years). TI-RADS 4: 4-6 points. * FNA if 1.5 cm or larger, follow up if 1 cm or larger (at 1, 2, 3, and 5 years). TI-RADS 5: 7 points or more. * FNA if 1 cm or larger, follow up if 0.5 cm or larger (every year for 5 years). Dictated by: Franko Sarmiento RR Interpreted: Camacho Jackson MD on 10/18/2024 at 16:17 Transcribed by: CARMITA on 10/18/2024 at 16:18 Approved by: Camacho Jackson M.D. on 10/18/2024 at 16:30
--- NOTE | 2024-10-18 14:17 | DI.MG.S_ITS ---
MM screening mammo implant BI: 10/18/2024. BI-RADS: 2 CLINICAL: 39-year old female for bilateral screening mammogram. Tyrer-Cuzick lifetime risk of 9.8%. No personal or first-degree family history of breast cancer. The patient has bilateral implants. PRIOR EXAMS: None. This is a baseline mammogram. MAMMOGRAPHY TECHNIQUE: 2D and 3D (tomosynthesis) digital mammographic views obtained, with additional images as needed for full coverage. Current study was also evaluated with a Computer Aided Detection (CAD) system. DENSITY C. The breasts are heterogeneously dense, which may obscure small masses. IMPLANTS Breast implants present. MAMMOGRAPHY FINDINGS Bilateral: There are no suspicious masses, calcifications, or other findings in the breast. IMPRESSION: * No evidence of malignancy with benign findings. RECOMMENDATIONS Bilateral * Annual screening mammography. OVERALL ASSESSMENT CATEGORY BI-RADS-2: Benign. The [employer] recommends annual screening mammography beginning at age 40 for women with average risk of breast cancer. ELECTRONICALLY SIGNED: Destinee Becerra M.D. on 10/18/2024 at 03:49:10 PM PT Interpreting Station ID: [id number]
[2024-10-18 16:54] LABS: Free T3, Triiodothyronine Free 4.17 pg/mL (2.77-5.27); Free T4, Direct Thyroxine 0.91 ng/dL (0.78-2.19)
[2024-10-18 17:07] LABS: Thyroid Stimulating Hormone 1.16 uIU/mL (0.47-4.68)
== END ==
PROVIDERS: PCP Student in an Organized Health Care Education/Training Program; Referring Provider Student in an Organized Health Care Education/Training Program; Visit Provider Student in an Organized Health Care Education/Training Program
DX: Z12.31 Encounter for screening mammogram for malignant neoplasm of breast (principal); R92.333 Mammographic heterogeneous density, bilateral breasts; Z98.82 Breast implant status; E04.9 Nontoxic goiter, unspecified
CPT/HCPCS: 36415; 76536; 77063; 77067; 84439; 84443; 84481